=== PATIENT | male | born 1995 | race Caucasian/White ===

== ENCOUNTER 2019-08-19 10:24 | Emergency (ER) | payer OTHER ==
[~2019-08-19] VITALS: Ht 182.9 cm; Wt 77.1 kg
[~2019-08-19 10:24] MED LIST: NAPROSYN500 MG PO
== END 2019-08-19 11:14 | disposition home or self-care (01) ==
LOC: ED 10:24
DX: S61.412A Laceration without foreign body of left hand, initial encounter (principal); F17.200 Nicotine dependence, unspecified, uncomplicated; Z88.8 Allergy status to other drugs, medicaments and biological substances; Z79.899 Other long term (current) drug therapy; W45.8XXA Other foreign body or object entering through skin, initial encounter
CPT/HCPCS: 12001; 90471; 90715; 99282-25

== ENCOUNTER 2024-07-11 17:34 | Emergency (ER) | payer OTHER ==
[~2024-07-11] VITALS: Ht 185.4 cm; Wt 84.6 kg
[2024-07-11] MEDS ORDERED: TRANEXAMIC ACID IN NACL,ISO-OS 1,000 MG/100 ML PIGGYBACK IV ONE ×2 (17:45→18:45)
[2024-07-11] MEDS ORDERED: propofoL 100 ML IV ONE (17:47)
[2024-07-11 17:50] LABS: BASOPHILS 0.8 % (0-2); EOSINOPHILS 8.8 % (0-6); HEMATOCRIT 40.6 % (35.0-50.0); HEMOGLOBIN 14.1 g/dL (12.0-18.0); LYMPHOCYTES 27.6 % (24-44); MCH 29.1 (27-36); MCHC 34.6 g/dl (30-36); MONOCYTES 6.5 % (0-12); NEUTROPHILS 56.3 % (39-80); PLATELET COUNT 337 K/uL (140-440); RBC 4.84 M/ul (4.3-5.7); RDW 13.2 (10.5-15.0)
[2024-07-11 18:05] LABS: ALBUMIN 3.8 g/dL (3.4-5.0); ALBUMIN/GLOBULIN RATIO 1.12 (1.1-2.4); BILIRUBIN, TOTAL 0.6 mg/dL (0.2-1.0); BUN/CREATININE RATIO 18.05 (6.0-28.6); CALCIUM 8.7 mg/dL (8.5-10.1); CREATININE, SERUM 0.72 mg/dL (0.70-1.30); PROTEIN, TOTAL 7.2 g/dL (6.4-8.2)
[2024-07-11 18:23] LABS: BASE EXCESS, BLOOD GAS -4.2 mmol/L (-2-2); O2 SATURATION, BLOOD GAS 98.5 % (95.0-100.0); PCO2, BLOOD GAS 43.3 mmHg (35-45); PH, BLOOD GAS 7.31 (7.35-7.45); PO2, BLOOD GAS 151 mmHg (80-100); TOTAL CO2, BLOOD GAS 23.4
[2024-07-11 18:24] LABS: OXYGEN RECEIVED, BLOOD GAS 40%
[2024-07-11 18:29] LABS: ABO O; ANTIBODY SCREEN NEGATIVE; RH NEGATIVE
[2024-07-11] MEDS ORDERED: propofoL 100 ML IV SCH (18:45)
[2024-07-11] MEDS ORDERED: KETAMINE HCL IN NACL, ISO-OSM 100 ML IV ONE (18:45)
[2024-07-11] MEDS ORDERED: KETAMINE HCL IN NACL, ISO-OSM 100 ML IV SCH (19:15)
[2024-07-11 19:21] LABS: AMPHETAMINES, URINE NEGATIVE (NEGATIVE); BARBITURATES, URINE NEGATIVE (NEGATIVE); BENZODIAZEPINE, URINE POSITIVE (NEGATIVE); BUPRENORPHINE, URINE NEGATIVE (NEGATIVE); CANNABINOID, URINE NEGATIVE (NEGATIVE); COCAINE, URINE POSITIVE (NEGATIVE); ECSTASY, URINE NEGATIVE (NEGATIVE); FENTANYL, URINE NEGATIVE (NEGATIVE); METHADONE, URINE NEGATIVE (NEGATIVE); OPIATES, URINE NEGATIVE (NEGATIVE); OXYCODONE, URINE NEGATIVE (NEGATIVE); PHENCYCLIDINE, URINE NEGATIVE (NEGATIVE)
[2024-07-11 21:21] VITALS: BP 111/78
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
== END 2024-07-11 19:30 | disposition short-term general hospital (02) ==
LOC: ED 17:34
PROVIDERS: Emergency Medicine
DX: S22.41XA Multiple fractures of ribs, right side, initial encounter for closed fracture (principal); S06.6XAA Traumatic subarachnoid hemorrhage with loss of consciousness status unknown, initial encounter; S02.119A Unspecified fracture of occiput, initial encounter for closed fracture; V89.2XXA Person injured in unspecified motor-vehicle accident, traffic, initial encounter
CPT/HCPCS: 31500; 36415; 36600; 51702; 70450; 71045; 71260; 72125; 74177; 80053; 80307; 82803; 85025; 86850; 86900; 86901; 94799; 99285-25; A4311; G0480; J2704; J3490; Q9967